=== PATIENT | male | born 1995 | race American Indian/Alaskan Native ===

== ENCOUNTER 2024-08-06 17:05 | Emergency (ER) | payer OTHER, SELFPAY ==
[2024-08-06 17:14] VITALS: BP 166/88; PULSE 90; RESP 19; TEMP 36.8; O2SAT 96; BMI 43.7
[2024-08-06 18:43] VITALS: BP 161/69; PULSE 94; RESP 20; TEMP 37.1; O2SAT 100
--- NOTE | 2024-08-06 18:49 | EDNOTE_ITS ---
ED Wound/Laceration-RME/HPI General Chief Complaint: Skin/Abscess/Foreign Body Stated Complaint: LACERATION RIGHT HEAD. Time Seen by Provider: 08/06/24 18:34 Arrival date/time: 08/06/24 17:05 29M with no significant PMH presents to ED with scalp lac from football injury yesterday. Patient denies LOC, AMS, seizures, N/V, and vision changes. Patient has not had a tetanus shot in the past 5 years. Patient also injured his L pinky finger during same encounter. Limitations: no limitations Related Data Allergies Allergy/AdvReac Type Severity Reaction Status Date / Time NKA* Allergy Uncoded 08/06/24 17:06 Review of Systems Review of Systems Systems Reviewed: All systems reviewed, normal except as documented Constitutional Constitutional: Reports system reviewed and no additional complaints, except as documented, Denies fever(s) and Denies headache(s) ENT Ears, Nose, Mouth, and Throat: Denies disequilibrium and Denies headache(s) Cardiovascular Cardiovascular: Reports system reviewed and no additional complaints, except as documented, Denies chest pain and Denies dyspnea Respiratory Respiratory: Reports system reviewed and no additional complaints, except as documented, Denies cough and Denies dyspnea Gastrointestinal Gastrointestinal: Reports system reviewed and no additional complaints, except as documented, Denies abdominal pain, Denies nausea and Denies vomiting Musculoskeletal Musculoskeletal: Reports as per HPI and Reports arthralgias Integumentary/Breasts Skin/Breast: Reports as per HPI and Reports skin pain Neurologic Neurologic: Reports system reviewed and no additional complaints, except as documented, Denies confusion, Denies disequilibrium and Denies headache(s) Psychiatric Psychiatric: Denies confusion Past Medical History Past Medical History NEUROLOGIC: Negative Neurological Disorders CARDIAC: Negative Cardiac Disorders or Congestive Heart Failure RESPIRATORY: Negative Chronic Obstructive Pulmonary Disease (COPD) GASTROINTESTINAL: Negative Gastrointestinal Disorders GENITOURINARY: Negative Genitourinary Disorders or Renal Disease REPRODUCTIVE: Negative Fibroids MUSCULOSKELETAL: Negative Musculoskeletal Disorders ENDOCRINE: Negative Endocrine Disorders, Diabetes Mellitus Type 1 or Diabetes Mellitus Type 2 HEMATOLOGIC: Negative Blood Disorders OTHER HISTORY: Negative Autoimmune Disease, Anesthesia Reactions, Organ Transplant, MRSA, Clostridium Difficile or Cancer Family History FAMILY HISTORY: Negative Family Cardiac Disorders Surgical History SURGICAL: Negative Cardiac Surgery, Endocrine Surgery, Ear Surgery, Abdominal Surgery, Nephrectomy, Joint Replacement, Neurologic Surgery, Mastectomy, Vasectomy or Organ Transplant Social History SMOKING STATUS: Never smoker SECOND HAND EXPOSURE: No SUBSTANCE USE: marijuana and opiates (Oxy) ED Exam General Limitations: Present no limitations General appearance: Present alert and in no apparent distress Expanded Head Exam Head exam physical: Present laceration (4 cm scalp healing) Eye Eye exam: Present normal appearance, PERRL and EOMI ENT ENT exam: Present normal exam, normal oropharynx and mucous membranes moist Neck Neck exam: Present normal inspection, full ROM and trachea midline Chest Chest inspection: Present normal inspection and symmetric chest wall rise Respiratory Respiratory exam: Present normal lung sounds bilaterally Cardiovascular Cardiovascular exam: Present regular rate, normal rhythm and normal heart sounds Abdominal Exam Abdominal exam: Present soft and normal bowel sounds Expanded Upper Extremity Exam Hand exam: Present full ROM (L pinky finger), tenderness, swelling and ecchymosis Back Exam Back exam: Present normal inspection and full ROM Neurological Exam Neurological exam: Present alert, oriented X3 and CN II-XII intact Psychiatric Psychiatric exam: Present normal affect and normal mood Skin Skin exam: Present warm, dry, intact and normal color Course Quality Measures none Orders Category Date Time Status Splint / Immobilizer STAT Care 08/06/24 18:35 Active Tet,Diphth,Pertuss(Acell)-Tdap [Boostrix Vacc] Med 08/06/24 18:35 Discontinued 0.5 ml IMI .ONCE ONE Vital Signs Vital signs: Vital Signs Temperature 98.2 F 08/06/24 17:14 Pulse Rate 90 08/06/24 17:14 Respiratory Rate 19 08/06/24 17:14 Blood Pressure 166/88 H 08/06/24 17:14 Pulse Oximetry (%) 96 08/06/24 17:14 Oxygen Delivery Method Room Air 08/06/24 17:14 O2 at 96% on RA and WNLs Wound / Laceration MDM Narrative MDM Narrative:: 29M with no significant PMH presents to ED with scalp lac from football injury yesterday. Patient denies LOC, AMS, seizures, N/V, and vision changes. Patient has not had a tetanus shot in the past 5 years. Patient also injured his L pinky finger during same encounter. Physical exam reveals 4 cm healing laceration on scalp. Normal pupil response and EOM. ENT clear. L pinky finger bruised, swollen, and tender, but ROM mostly intact. Cap refill normal. Patient is afebrile, calm, and alert. Wound already healing repair not necessary. Patient declines CT of head and XR of finger. He just wants a finger protector and so given. Patient data External records reviewed:: [facility] previous records Clinical information provided by:: patient Social determinants that could affect healthcare access:: none Patient has the following chronic illnesses:: none How is presenting disease/condition affected by chronic disease/condition?: no chronic disease Evaluation data The following diagnostics were reviewed and interpreted by me:: other (specify) (none) Lab and/or radiology exams considered but not ordered:: not ordered Interpretation Summary: n/a Medications / Prescriptions Medications or Prescriptions considered but not ordered:: ordered Medication administrations:: Medication Administration History Discontinued Medications Diphtheria/Tetanus/Acell Pertussis (Diphth,Pertuss(Acell),Tet Vac 0.5 Ml Vial) 0.5 ml IMi .ONCE ONE Stop: 08/06/24 18:36 above Consultations Consultation(s) initiated? (list below): No Diagnosis Wound Differential Diagnosis: laceration, abrasion, avulsion of skin and other (finger pain) Most likely diagnosis given after review of the tests above:: laceration and finger pain Admission Indicated Admission indicated?: not indicated Admission Request Was there a request for admission?: No Disposition Plan Disposition Plan: Discharge Discharge Attestation Discharge Attestation: The patient and all family members were given an opportunity to ask questions and understood the discharge instructions. Discharge instructions specifically effects, indications for sooner follow up or return to the emergency department, and the expected course of current diagnosis. Patient condition: Stable Discharge Plan Plan Patient Disposition: HOME (Self Care) Disposition Comment: Stable Problem List Clinical Impression: Laceration, Finger pain Patient/Caregiver Discharge Instructions Additional Instructions: Please follow-up with PCP within 24-48 hours and return immediately if symptoms worsen. If problem persists, recommend outpatient PT and/or MRI follow-up. In the meantime, rest, use ice/heat, and/or compression. Keep laceration clean and dry as best as you can. Print Language: Lithuanian Stand Alone Forms: Patient Portal Info Letter [place] Supervising Physician [place] Supervising Physician: Dr. Meadows
== END 2024-08-06 18:43 | disposition home or self-care (01) ==
PROVIDERS: Emergency Provider Emergency Medicine; PCP Physician Assistant
DX: S01.01XA Laceration without foreign body of scalp, initial encounter (principal); S69.92XA Unspecified injury of left wrist, hand and finger(s), initial encounter; X58.XXXA Exposure to other specified factors, initial encounter; Y93.61 Activity, american tackle football
CPT/HCPCS: 99282

== ENCOUNTER 2025-08-04 03:27 | Emergency (ER) | payer SELFPAY ==
[2025-08-04 03:28] VITALS: BMI 40.4
[2025-08-04 03:32] VITALS: BP 187/80; PULSE 97; RESP 18; TEMP 36.8; O2SAT 95
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
[2025-08-04 03:49] VITALS: BP 173/83; PULSE 98; O2SAT 99
== END 2025-08-04 03:51 ==
LOC: SERX 03:45
PROVIDERS: Emergency Provider Emergency Medicine; PCP Physician Assistant
DX: Z02.89 Encounter for other administrative examinations (principal); S00.83XA Contusion of other part of head, initial encounter; S60.511A Abrasion of right hand, initial encounter; V89.2XXA Person injured in unspecified motor-vehicle accident, traffic, initial encounter
CPT/HCPCS: 99281